=== PATIENT | male | born 1965 ===

== ENCOUNTER 2024-09-09 05:25 | Day surgery (SDC) | payer OTHER ==
[2024-09-09] MEDS ORDERED: MOXIFLOXACIN H400 MG PO (10:43)
[2024-09-09] MEDS ORDERED: fentaNYL CITRATE 50 MCG/ML AMPUL IV ONE (10:45)
[2024-09-09] MEDS ORDERED: MIDAZOLAM HCL 2 MG/2 ML VIAL IV ONE (10:45)
== END 2024-09-09 12:00 | disposition home or self-care (01) ==
LOC: AMB-ENDOS 05:25
PROVIDERS: ATTEND Surgery
DX: D12.3 Benign neoplasm of transverse colon (principal); D12.8 Benign neoplasm of rectum; K63.5 Polyp of colon; K57.30 Diverticulosis of large intestine without perforation or abscess without bleeding

== ENCOUNTER 2024-11-06 10:40 | Inpatient (IN) | payer OTHER ==
[~2024-11-06] VITALS: Ht 152.4 cm; Wt 68.0 kg
[~2024-11-06 10:40] MED LIST: MOXIFLOXACIN H400 MG PO
[2024-11-06] MEDS ORDERED: TOPROL XL100 M1 PO (14:36)
[2024-11-06] MEDS ORDERED: LEVO-T25 MCG PO (14:36)
[2024-11-06] MEDS ORDERED: IRBESARTAN-HCT1 EACH PO (14:36)
[2024-11-06] MEDS ORDERED: ROSUVASTATIN CA20 MG PO (14:37)
[2024-11-06] MEDS ORDERED: LIPOFEN150 MG PO (14:37)
[2024-11-14] MEDS ORDERED: METRONIDAZOLE/SODIUM CHLORIDE 500 MG/100 ML PIGGYBACK IV ONE ×3 (13:57→17:48)
[2024-11-14] MEDS ORDERED: LIDOCAINE HCL 1%/EPINEPHRINE 20ML VIAL IJ ONE (13:57)
[2024-11-14] MEDS ORDERED: CEFTRIAXONE SODIUM 2,000 MG VIAL ONE (13:57)
[2024-11-14] MEDS ORDERED: BUPIVACAINE HCL/Mpf 0.5% 10ML VIAL ONE (13:57)
[2024-11-14] MEDS ORDERED: MORPHINE SULFATE 4 MG/ML CARTRIDGE IV PRN (14:45)
[2024-11-14] MEDS ORDERED: 0.9 % SODIUM CHLORIDE 1,000 ML IV SCH (14:45)
[2024-11-14] MEDS ORDERED: OxyCODONE HCL 5 MG TABLET (ROXICODONE) PO PRN (14:45)
[2024-11-14] MEDS ORDERED: ONDANSETRON HCL 2 MG/ML VIAL IV PRN (14:45)
[2024-11-14] MEDS ORDERED: DEXTROSE 50 % IN WATER 0.5 G/ML DISP.SYRIN IV PRN (14:45)
[2024-11-14] MEDS ORDERED: HYOSCYAMINE SULFATE 0.125 MG TAB.SUBL SL SCH (17:00)
[2024-11-14] MEDS ORDERED: GABAPENTIN 300 MG CAPSULE PO SCH (17:00)
[2024-11-14] MEDS ORDERED: METRONIDAZOLE/SODIUM CHLORIDE 500 MG/100 ML PIGGYBACK IV SCH (17:00)
[2024-11-14] MEDS ORDERED: POLYETHYLENE GLYCOL 3350 17 GM BLIST.PACK PO SCH (17:00)
[2024-11-14] MEDS ORDERED: MORPHINE SULFATE 4 MG/ML VIAL IV ONE ×3 (17:25→19:55)
[2024-11-14 18:46] LABS: HEMATOCRIT 36.6 % (39.0-48.0); HEMOGLOBIN 11.8 g/dL (13-16.00); MEAN CELL VOLUME 85.4 fL (80.0-100.00); MEAN CORPUSCULAR HEMOGLOBIN 27.6 pg (27.00-32.0); MEAN CORPUSCULAR HGB CONC 32.3 g/dl (32.0-36.0); PLATELET COUNT 457 K/uL (150-450); RED BLOOD COUNT 4.29 M/uL (4.00-6.00); RED CELL DISTRIBUTION WIDTH 14.9 % (11.5-14.5)
[2024-11-14] MEDS ORDERED: HYDROCORTISONE SODIUM SUCC/PF 100 MG VIAL IV SCH (19:01)
[2024-11-14 19:06] LABS: ALBUMIN 3.4 gm/dL (3.4-5.0); CALCIUM 8.4 mg/dL (8.5-10.1); CREATININE SERUM 1.37 mg/dL (0.70-1.30); GFR 53.37; MAGNESIUM 1.5 mg/dL (1.8-2.4); PHOSPHOROUS 3.3 mg/dL (2.5-4.9); POTASSIUM 3.97 mEq/L (3.5-5.1)
[2024-11-14] MEDS ORDERED: hydrALAZINE HCL 20 MG VIAL IV PRN (19:15)
[2024-11-14] MEDS ORDERED: ACETAMINOPHEN 500 MG GEL..CAP PO SCH (20:00)
[2024-11-14] MEDS ORDERED: MEPERIDINE HCL 25 MG/ML AMPUL IV ONE (20:55)
[2024-11-14] MEDS ORDERED: FAMOTIDINE/PF 20 MG/2 ML VIAL IV PUSH SCH (21:00)
[2024-11-14] MEDS ORDERED: CELECOXIB 200 MG CAPSULE PO SCH (21:00)
[2024-11-15] MEDS ORDERED: ACETAMINOPHEN 500 MG GEL..CAP PO ONE (00:39)
[2024-11-15] MEDS ORDERED: METRONIDAZOLE/SODIUM CHLORIDE 500 MG/100 ML PIGGYBACK IV ONE (00:39)
[2024-11-15] MEDS ORDERED: GABAPENTIN 300 MG CAPSULE PO ONE (00:39)
[2024-11-15] MEDS ORDERED: METHYLPREDNISOLONE SOD SUCC 125 MG VIAL ONE (00:45)
[2024-11-15 03:58] VITALS: BP 137/76; O2SAT 95
[2024-11-15] MEDS ORDERED: LEVOTHYROXINE SODIUM 25 MCG TABLET PO SCH (06:00)
[2024-11-15 07:16] LABS: HEMATOCRIT 38.6 % (39.0-48.0); HEMOGLOBIN 12.5 g/dL (13-16.00); MEAN CELL VOLUME 84.3 fL (80.0-100.00); MEAN CORPUSCULAR HEMOGLOBIN 27.2 pg (27.00-32.0); MEAN CORPUSCULAR HGB CONC 32.3 g/dl (32.0-36.0); PLATELET COUNT 419 K/uL (150-450); RED BLOOD COUNT 4.58 M/uL (4.00-6.00); RED CELL DISTRIBUTION WIDTH 14.8 % (11.5-14.5)
[2024-11-15 08:02] LABS: ALBUMIN 3.5 gm/dL (3.4-5.0); CREATININE SERUM 1.23 mg/dL (0.70-1.30); GFR 60.44; MAGNESIUM 1.8 mg/dL (1.8-2.4); PHOSPHOROUS 2.8 mg/dL (2.5-4.9); POTASSIUM 4.25 mEq/L (3.5-5.1)
[2024-11-15] MEDS ORDERED: METOPROLOL SUCCINATE 100 MG TAB.SR.24H PO SCH (09:00)
[2024-11-15] MEDS ORDERED: HYDROCHLOROTHIAZIDE 12.5 MG CAPSULE PO SCH (09:00)
[2024-11-15] MEDS ORDERED: IRBESARTAN 150 MG TABLET PO SCH (09:00)
[2024-11-15] MEDS ORDERED: HYDROCORTISONE SODIUM SUCC/PF 50 MG/ML ML IV SCH ×2 (12:00→18:00)
[2024-11-15 16:00] VITALS: BP 115/71; O2SAT 97
[2024-11-15] MEDS ORDERED: ROSUVASTATIN 20 MG PO SCH (17:00)
[2024-11-15] MEDS ORDERED: ENOXAPARIN SODIUM 40 MG/0.4 ML SYRINGE SUBCUTANEO SCH (17:00)
[2024-11-16 01:33] VITALS: BP 114/72; O2SAT 95
[2024-11-16 08:00] VITALS: BP 120/65; O2SAT 96
[2024-11-16 08:41] LABS: HEMATOCRIT 33.5 % (39.0-48.0); HEMOGLOBIN 11.2 g/dL (13-16.00); MEAN CELL VOLUME 82.9 fL (80.0-100.00); MEAN CORPUSCULAR HEMOGLOBIN 27.6 pg (27.00-32.0); MEAN CORPUSCULAR HGB CONC 33.3 g/dl (32.0-36.0); PLATELET COUNT 365 K/uL (150-450); RED BLOOD COUNT 4.05 M/uL (4.00-6.00); RED CELL DISTRIBUTION WIDTH 14.8 % (11.5-14.5)
[2024-11-16] MEDS ORDERED: ENOXAPARIN SODIUM 40 MG/0.4 ML SYRINGE SUBCUTANEO SCH (09:00)
[2024-11-16 09:26] LABS: CREATININE SERUM 1.52 mg/dL (0.70-1.30); GFR 47.34; MAGNESIUM 1.9 mg/dL (1.8-2.4); PHOSPHOROUS 2.7 mg/dL (2.5-4.9); POTASSIUM 4.17 mEq/L (3.5-5.1)
[2024-11-16] MEDS ORDERED: SODIUM CHLORIDE 0.45 % 1,000 ML IV STA (13:59)
[2024-11-16 16:00] VITALS: BP 108/72; O2SAT 96
[2024-11-16] MEDS ORDERED: HYDROCORTISONE SODIUM SUCC/PF 50 MG/ML ML IV SCH (21:00)
[2024-11-17 02:00] VITALS: BP 96/63; O2SAT 89
[2024-11-17 02:49] VITALS: BP 98/50; O2SAT 97
[2024-11-17 03:42] LABS: ALBUMIN 2.6 gm/dL (3.4-5.0); ALKALINE PHOSPHATASE 41 U/L (50-136); ALT/SGPT 20 U/L (12-78); ANION GAP 13 (10.0-20.0); AST/SGOT 9 U/L (15-37); BILIRUBIN TOTAL 0.44 mg/dL (0.3-1.2); BLOOD UREA NITROGEN 18 mg/dL (7-18); BUN CREA RATIO 13 (7.0-25.0); CALCIUM 8.8 mg/dL (8.5-10.1); CARBON DIOXIDE 24 mEq/L (21-32); CHLORIDE 111 mmol/L (98-107); CREATININE SERUM 1.44 mg/dL (0.70-1.30); GFR 50.39; GLOBULINA 2.7 G/DL (2.4-3.5); GLUCOSE FASTING 105 mg/dL (65-100); OSMOLALITY SERUM 289 MOSM/KG (275-295); SODIUM 144 mmol/L (136-145); TOTAL PROTEIN 5.3 gm/dL (6.4-8.2)
[2024-11-17 04:08] LABS: CKMB < 1.0 NG/ML (0.5-3.6)
[2024-11-17] MEDS ORDERED: HYDROCORTISONE SODIUM SUCC/PF 50 MG/ML ML IV SCH (06:00)
[2024-11-17 08:00] VITALS: BP 90/67; O2SAT 95
[2024-11-17 16:00] VITALS: BP 109/75; O2SAT 95
[2024-11-17 21:00] VITALS: O2SAT 90
[2024-11-18 01:24] VITALS: BP 117/77; O2SAT 94
[2024-11-18 02:32] VITALS: O2SAT 100
[2024-11-18 08:00] VITALS: BP 116/77; O2SAT 93
[2024-11-18] MEDS ORDERED: HYDROCORTISONE SODIUM SUCC/PF 50 MG/ML ML IV SCH ×2 (09:00)
[2024-11-18 09:28] VITALS: O2SAT 96
[2024-11-18 16:00] VITALS: BP 127/61; O2SAT 98
[2024-11-18 17:49] VITALS: O2SAT 95
[2024-11-19] VITALS (8 sets, daily range): BP systolic 96–132; BP diastolic 52–67; O2SAT 90–98
[2024-11-19 07:59] LABS: HEMATOCRIT 34.5 % (39.0-48.0); HEMOGLOBIN 11.3 g/dL (13-16.00); MEAN CELL VOLUME 84.1 fL (80.0-100.00); MEAN CORPUSCULAR HEMOGLOBIN 27.6 pg (27.00-32.0); MEAN CORPUSCULAR HGB CONC 32.8 g/dl (32.0-36.0); PLATELET COUNT 468 K/uL (150-450); RED CELL DISTRIBUTION WIDTH 15.2 % (11.5-14.5)
[2024-11-19 08:21] LABS: CALCIUM 8.3 mg/dL (8.5-10.1); CREATININE SERUM 1.61 mg/dL (0.70-1.30); GFR 44.3; MAGNESIUM 2.2 mg/dL (1.8-2.4); PHOSPHOROUS 3.3 mg/dL (2.5-4.9); POTASSIUM 4.4 mEq/L (3.5-5.1); T4 TOTAL 7.26 UG/DL (4.5-12.1)
[2024-11-19] MEDS ORDERED: PREDNISONE 10 MG TABLET PO SCH (09:00)
[2024-11-19] MEDS ORDERED: DIATRIZOATE MEGLUMINE, SODIUM 30 ML BOTTLE PO NR (13:00)
[2024-11-19] MEDS ORDERED: PIPERACILLIN/TAZOBACTAM SODIUM 3.375 GM VIAL IV SCH (13:00)
[2024-11-20 00:58] VITALS: BP 106/46; O2SAT 95
[2024-11-20 06:55] LABS: HEMATOCRIT 33.5 % (39.0-48.0); HEMOGLOBIN 11.1 g/dL (13-16.00); MEAN CELL VOLUME 83.7 fL (80.0-100.00); MEAN CORPUSCULAR HEMOGLOBIN 27.7 pg (27.00-32.0); MEAN CORPUSCULAR HGB CONC 33.1 g/dl (32.0-36.0); PLATELET COUNT 581 K/uL (150-450); RED CELL DISTRIBUTION WIDTH 15.9 % (11.5-14.5)
[2024-11-20 07:09] LABS: CALCIUM 8.8 mg/dL (8.5-10.1); CREATININE SERUM 1.74 mg/dL (0.70-1.30); GFR 40.5; MAGNESIUM 2.5 mg/dL (1.8-2.4); PHOSPHOROUS 3.8 mg/dL (2.5-4.9); POTASSIUM 4.31 mEq/L (3.5-5.1)
[2024-11-20 09:23] VITALS: O2SAT 98
[2024-11-20 13:34] VITALS: O2SAT 97
[2024-11-20 16:06] VITALS: O2SAT 98
[2024-11-20] MEDS ORDERED: AA 4.25%/CAL/LYTES/DEXT 5% 1,000 ML PERIFERAL SCH (17:00)
[2024-11-20] MEDS ORDERED: MEROPENEM 500 MG/VIAL VIAL IV SCH (17:00)
[2024-11-20 19:26] VITALS: O2SAT 99
[2024-11-20 20:30] VITALS: BP 121/65; O2SAT 99
[2024-11-20] MEDS ORDERED: LINEZOLID IN DEXTROSE 5% 300 ML IV SCH (21:00)
[2024-11-20] MEDS ORDERED: MIDAZOLAM HCL 2 MG/2 ML VIAL IV PUSH ONE (21:30)
[2024-11-20] MEDS ORDERED: fentaNYL CITRATE 50 MCG/ML AMPUL IV PUSH ONE (21:45)
[2024-11-21] VITALS (8 sets, daily range): BP systolic 100–116; BP diastolic 55–77; O2SAT 90–97
[2024-11-21 07:10] LABS: HEMATOCRIT 32.2 % (39.0-48.0); HEMOGLOBIN 10.7 g/dL (13-16.00); MEAN CELL VOLUME 82.7 fL (80.0-100.00); MEAN CORPUSCULAR HEMOGLOBIN 27.5 pg (27.00-32.0); MEAN CORPUSCULAR HGB CONC 33.2 g/dl (32.0-36.0); PLATELET COUNT 588 K/uL (150-450)
[2024-11-21 07:45] LABS: CALCIUM 8.9 mg/dL (8.5-10.1); CREATININE SERUM 1.54 mg/dL (0.70-1.30); GFR 46.63; MAGNESIUM 2.5 mg/dL (1.8-2.4); PHOSPHOROUS 3.5 mg/dL (2.5-4.9); POTASSIUM 5.14 mEq/L (3.5-5.1)
[2024-11-22] VITALS (8 sets, daily range): BP systolic 119–134; BP diastolic 77–86; O2SAT 86–100
[2024-11-22] MEDS ORDERED: MORPHINE SULFATE 4 MG/ML CARTRIDGE IV STA (08:20)
[2024-11-22] MEDS ORDERED: MORPHINE SULFATE 4 MG/ML CARTRIDGE IV PRN (08:30)
[2024-11-22] MEDS ORDERED: PANTOPRAZOLE SODIUM 40 MG/VIAL VIAL IV SCH (09:00)
[2024-11-22] MEDS ORDERED: Cyanocobalamin/Mecobalamin 1 TAB.SL SL SCH (09:00)
[2024-11-22] MEDS ORDERED: SOD FERRIC GLUC COMPLX/SUCROSE 62.5 MG in 0.9 % SODIUM CHLORIDE 50 ML IV SCH (09:00)
[2024-11-23] VITALS (9 sets, daily range): BP systolic 128–133; BP diastolic 70–74; O2SAT 90–98
[2024-11-23 07:46] LABS: HEMATOCRIT 34.7 % (39.0-48.0); HEMOGLOBIN 11.3 g/dL (13-16.00); MEAN CELL VOLUME 82.6 fL (80.0-100.00); MEAN CORPUSCULAR HEMOGLOBIN 26.8 pg (27.00-32.0); MEAN CORPUSCULAR HGB CONC 32.5 g/dl (32.0-36.0); PLATELET COUNT 625 K/uL (150-450); RED CELL DISTRIBUTION WIDTH 16.2 % (11.5-14.5)
[2024-11-23 07:56] LABS: CALCIUM 8.1 mg/dL (8.5-10.1); CREATININE SERUM 0.98 mg/dL (0.70-1.30); GFR 78.56; PHOSPHOROUS 3.5 mg/dL (2.5-4.9); POTASSIUM 5.13 mEq/L (3.5-5.1)
[2024-11-23] MEDS ORDERED: DIATRIZOATE MEGLUMINE, SODIUM 30 ML BOTTLE PO NR (14:30)
[2024-11-24] VITALS (10 sets, daily range): BP systolic 142–149; BP diastolic 65–82; O2SAT 90–100
[2024-11-24] MEDS ORDERED: DIPHENHYDRAMINE HCL 50 MG/ML VIAL 1ML IV PRN (10:15)
[2024-11-24 18:19] LABS: HEMATOCRIT 35.1 % (39.0-48.0); HEMOGLOBIN 11.2 g/dL (13-16.00); MEAN CORPUSCULAR HEMOGLOBIN 26.6 pg (27.00-32.0); PLATELET COUNT 665 K/uL (150-450); RED BLOOD COUNT 4.23 M/uL (4.00-6.00); RED CELL DISTRIBUTION WIDTH 15.7 % (11.5-14.5)
[2024-11-24 18:20] LABS: INR 1.19; PARTIAL THROMBOPLASTIN TIME 36.2 SECONDS (22.0-34.0); PROTHROMBIN TIME 12.8 SECONDS (9.0-11.5)
[2024-11-24 18:26] LABS: ALBUMIN 1.6 gm/dL (3.4-5.0); BILIRUBIN TOTAL 0.44 mg/dL (0.3-1.2); CALCIUM 8.1 mg/dL (8.5-10.1); CREATININE SERUM 0.97 mg/dL (0.70-1.30); GFR 79.49; GLOBULINA 3.2 G/DL (2.4-3.5); POTASSIUM 5.03 mEq/L (3.5-5.1); TOTAL PROTEIN 4.8 gm/dL (6.4-8.2)
[2024-11-25] VITALS (7 sets, daily range): BP systolic 91–143; BP diastolic 60–74; O2SAT 95–99
[2024-11-25 07:10] LABS: INR 1.16; PARTIAL THROMBOPLASTIN TIME 34.6 SECONDS (22.0-34.0); PROTHROMBIN TIME 12.5 SECONDS (9.0-11.5)
[2024-11-25 07:14] LABS: HEMATOCRIT 34.3 % (39.0-48.0); MEAN CELL VOLUME 83.9 fL (80.0-100.00); MEAN CORPUSCULAR HEMOGLOBIN 26.9 pg (27.00-32.0); RED BLOOD COUNT 4.09 M/uL (4.00-6.00); RED CELL DISTRIBUTION WIDTH 15.4 % (11.5-14.5)
[2024-11-25 07:19] LABS: ALBUMIN 1.6 gm/dL (3.4-5.0); BILIRUBIN TOTAL 0.49 mg/dL (0.3-1.2); BILIRUBIN,CONJUGATED 0.18 mg/dL (0.0-0.2); BILIRUBIN,UNCONJUGATED 0.31 mg/dL (0.0-0.6); CALCIUM 8.1 mg/dL (8.5-10.1); CREATININE SERUM 0.94 mg/dL (0.70-1.30); GFR 82.43; TOTAL PROTEIN 4.6 gm/dL (6.4-8.2)
[2024-11-25 07:20] LABS: POTASSIUM 5.82 mEq/L (3.5-5.1)
[2024-11-25 08:07] LABS: PLATELET COUNT 691 K/uL (150-450)
[2024-11-25 08:46] LABS: UREA CLEARANCE 23.7 ML/MIN
[2024-11-25] MEDS ORDERED: HYDROCORTISONE SODIUM SUCC/PF 100 MG VIAL IV STA (09:15)
[2024-11-25] MEDS ORDERED: HYDROCORTISONE SODIUM SUCC/PF 100 MG VIAL ONE (09:17)
[2024-11-25] MEDS ORDERED: HYDROCORTISONE SODIUM SUCC/PF 50 MG/ML ML IV SCH (14:00)
[2024-11-25] MEDS ORDERED: SUGAMMADEX SODIUM 200 MG/2 ML VIAL IV ONE (14:34)
[2024-11-25] MEDS ORDERED: MORPHINE SULFATE 4 MG/ML CARTRIDGE IV PRN (15:00)
[2024-11-25] MEDS ORDERED: DEXTROSE 50 % IN WATER 0.5 G/ML DISP.SYRIN IV PRN (15:00)
[2024-11-25] MEDS ORDERED: 0.9 % SODIUM CHLORIDE 1,000 ML IV SCH (15:00)
[2024-11-25] MEDS ORDERED: ONDANSETRON HCL 2 MG/ML VIAL IV PRN (15:00)
[2024-11-25] MEDS ORDERED: PROPOFOL 10,000 MCG/ML VIAL IV ONE (17:00)
[2024-11-25] MEDS ORDERED: HYOSCYAMINE SULFATE 0.125 MG TAB.SUBL SL SCH (17:00)
[2024-11-25] MEDS ORDERED: MORPHINE SULFATE 4 MG/ML VIAL IV ONE (17:10)
[2024-11-25] MEDS ORDERED: PROPOFOL 100 ML IV SCH (17:15)
[2024-11-25 18:19] LABS: ALBUMIN 1.4 gm/dL (3.4-5.0); CALCIUM 7.9 mg/dL (8.5-10.1); CREATININE SERUM 0.98 mg/dL (0.70-1.30); GFR 78.56; PHOSPHOROUS 5.3 mg/dL (2.5-4.9); POTASSIUM 5.9 mEq/L (3.5-5.1)
[2024-11-25 18:59] LABS: HEMATOCRIT 37.3 % (39.0-48.0); HEMOGLOBIN 11.7 g/dL (13-16.00); MEAN CELL VOLUME 84.1 fL (80.0-100.00); MEAN CORPUSCULAR HEMOGLOBIN 26.3 pg (27.00-32.0); MEAN CORPUSCULAR HGB CONC 31.3 g/dl (32.0-36.0); PLATELET COUNT 848 K/uL (150-450); RED BLOOD COUNT 4.43 M/uL (4.00-6.00); RED CELL DISTRIBUTION WIDTH 15.6 % (11.5-14.5)
[2024-11-25] MEDS ORDERED: FentaNYL CITRATE/PF 1,000 MCG in 0.9 % SODIUM CHLORIDE 100 ML IV SCH (19:15)
[2024-11-25] MEDS ORDERED: ACETAMINOPHEN 500 MG GEL..CAP PO SCH (20:00)
[2024-11-25] MEDS ORDERED: FAMOTIDINE/PF 20 MG/2 ML VIAL IV PUSH SCH (21:00)
[2024-11-25 22:27] LABS: ABG PH 7.301 (7.35-7.45); ABG PO2 70.2 mmHg (80-100); ABG pCO2 30.6 mmHg (35-45); BASE EXCESS -10.2 mmol/l; BICARBONATE 14.8 mmol/l (23-25); Tco2 15.7 mmol/l; allen test SATISFACTORY; o2 100 %; puncture site RADIAL RIGHT
[2024-11-26] VITALS (13 sets, daily range): BP systolic 88–126; BP diastolic 59–83; O2SAT 10–100
[2024-11-26] MEDS ORDERED: CHLORHEXIDINE GLUCONATE 15ML BRUSH KIT MM SCH (01:00)
[2024-11-26 07:04] LABS: ALBUMIN 1.3 gm/dL (3.4-5.0); CALCIUM 7.6 mg/dL (8.5-10.1); CREATININE SERUM 1.42 mg/dL (0.70-1.30); GFR 51.21; MAGNESIUM 2.1 mg/dL (1.8-2.4); PHOSPHOROUS 5.4 mg/dL (2.5-4.9)
[2024-11-26 07:05] LABS: HEMATOCRIT 30.8 % (39.0-48.0); HEMOGLOBIN 9.7 g/dL (13-16.00); MEAN CELL VOLUME 83.9 fL (80.0-100.00); MEAN CORPUSCULAR HEMOGLOBIN 26.4 pg (27.00-32.0); MEAN CORPUSCULAR HGB CONC 31.5 g/dl (32.0-36.0); RED BLOOD COUNT 3.67 M/uL (4.00-6.00); RED CELL DISTRIBUTION WIDTH 15.7 % (11.5-14.5)
[2024-11-26 07:22] LABS: POTASSIUM 6.24 mEq/L (3.5-5.1)
[2024-11-26 07:40] LABS: PLATELET COUNT 709 K/uL (150-450)
[2024-11-26 08:16] LABS: ABG PH 7.391 (7.35-7.45); ABG PO2 216.2 mmHg (80-100); ABG pCO2 36.3 mmHg (35-45); BASE EXCESS -2.8 mmol/l; BICARBONATE 21.5 mmol/l (23-25); SaO2 99.7 %; Tco2 22.6 mmol/l
[2024-11-26] MEDS ORDERED: FUROsemide 40 MG/4 ML VIAL IV STA (08:46)
[2024-11-26] MEDS ORDERED: WATER IV NR (09:00)
[2024-11-26] MEDS ORDERED: CALCIUM GLUCONATE 100 MG/ML VIAL IV NR (09:00)
[2024-11-26] MEDS ORDERED: POLYVINYL ALCOHOL 15 ML DROPS OP SCH (09:00)
[2024-11-26] MEDS ORDERED: HUMAN IV NR (09:00)
[2024-11-26] MEDS ORDERED: DEXTROSE 5% IV NR (09:00)
[2024-11-26] MEDS ORDERED: INSULIN REGULAR IV NR (09:00)
[2024-11-26 10:02] LABS: allen test SATISFACTORY; o2 100 %; puncture site RADIAL RIGHT
[2024-11-26 14:42] LABS: CALCIUM 7.8 mg/dL (8.5-10.1); CREATININE SERUM 1.28 mg/dL (0.70-1.30); GFR 57.72; POTASSIUM 4.68 mEq/L (3.5-5.1)
[2024-11-26] MEDS ORDERED: FLUCONAZOLE IN NACL,ISO-OSM 400 MG/200 ML PIGGYBAG IV SCH (17:00)
[2024-11-26] MEDS ORDERED: ENOXAPARIN SODIUM 40 MG/0.4 ML SYRINGE SUBCUTANEO SCH (17:00)
[2024-11-26 19:03] LABS: PH,URINE 5.5 (5.0-8.0); URINE APPEARANCE Cloudy; URINE BILIRRUBIN Negative (NEGATIVE); URINE BLOOD Large; URINE COLOR Orange; URINE GLUCOSE Negative (NEGATIVE); URINE KETONE Negative (NEGATIVE); URINE LEUKOCYTE Small; URINE NITRATE Negative; URINE PROTEIN 30 (NEGATIVE); URINE UROBILINOGEN 0.2 E.U./dl
[2024-11-26 19:06] LABS: URINE BACTERIA 217.8 uL (0.0-1933); URINE EPITHELIAL CELLS 14.2 uL (0.0-38.8); URINE RBC 8359.8 uL (0.0-20.8); URINE WBC 214.8 uL (0.0-23.2)
[2024-11-26 19:33] LABS: URINE CAST 0.14 uL (0.0-1.40)
[2024-11-26] MEDS ORDERED: TPN (Para identificar pt. en TPN) IV SCH (20:00)
[2024-11-26] MEDS ORDERED: VANCOMYCIN HCL 1,000 MG VIAL ONE (20:35)
[2024-11-26] MEDS ORDERED: VANCOMYCIN HCL 1,000 MG VIAL IV SCH (21:00)
[2024-11-26] MEDS ORDERED: CEFEPIME HCL 1,000 MG VIAL ONE (22:44)
[2024-11-27] VITALS (15 sets, daily range): BP systolic 85–122; BP diastolic 45–68; O2SAT 90–99
[2024-11-27 07:45] LABS: ALBUMIN 1.3 gm/dL (3.4-5.0); BILIRUBIN TOTAL 0.28 mg/dL (0.3-1.2); CALCIUM 7.7 mg/dL (8.5-10.1); CREATININE SERUM 1.12 mg/dL (0.70-1.30); GFR 67.34; GLOBULINA 3.1 G/DL (2.4-3.5); MAGNESIUM 2.4 mg/dL (1.8-2.4); POTASSIUM 5.51 mEq/L (3.5-5.1); TOTAL PROTEIN 4.4 gm/dL (6.4-8.2)
[2024-11-27 08:05] LABS: HEMATOCRIT 27.3 % (39.0-48.0); MEAN CORPUSCULAR HGB CONC 32.2 g/dl (32.0-36.0); RED CELL DISTRIBUTION WIDTH 16.1 % (11.5-14.5)
[2024-11-27] MEDS ORDERED: INSULIN REGULAR, HUMAN 1,000 UNIT/10 ML UNITS IV ONE (08:15)
[2024-11-27] MEDS ORDERED: DEXTROSE 5 % IN WATER 250 ML IV SCH (08:15)
[2024-11-27] MEDS ORDERED: ENOXAPARIN SODIUM 40 MG/0.4 ML SYRINGE SUBCUTANEO SCH (09:00)
[2024-11-27 09:16] LABS: MEAN CORPUSCULAR HEMOGLOBIN 27.5 pg (27.00-32.0)
[2024-11-27 09:17] LABS: HEMOGLOBIN 8.8 g/dL (13-16.00); PLATELET COUNT 773 K/uL (150-450)
[2024-11-27] MEDS ORDERED: FUROsemide 40 MG/4 ML VIAL ONE (09:51)
[2024-11-27] MEDS ORDERED: FUROsemide 40 MG/4 ML VIAL IV SCH (10:00)
[2024-11-27] MEDS ORDERED: MIDAZOLAM HCL 100 MG in 0.9 % SODIUM CHLORIDE 100 ML IV SCH (10:30)
[2024-11-27] MEDS ORDERED: FUROsemide 20 MG/2 ML VIAL IV SCH (11:15)
[2024-11-27 11:50] LABS: ABG PH 7.235 (7.35-7.45); ABG pCO2 48.2 mmHg (35-45)
[2024-11-27 11:51] LABS: BASE EXCESS -7.6 mmol/l; Tco2 21.5 mmol/l; allen test SATISFACTORY; o2 100 %; puncture site RADIAL LEFT
[2024-11-27 11:52] LABS: ABG PO2 59.6 mmHg (80-100)
[2024-11-27] MEDS ORDERED: HYDROCORTISONE SODIUM SUCC/PF 50 MG/ML ML IV SCH (13:00)
[2024-11-27] MEDS ORDERED: VANCOMYCIN HCL 1,000 MG VIAL ONE (14:43)
[2024-11-27] MEDS ORDERED: FLUCONAZOLE IN NACL,ISO-OSM 200 MG/100 ML PIGGYBAG IV SCH (17:00)
[2024-11-27] MEDS ORDERED: INSULIN LISPRO 1,000 UNIT/10 ML UNITS SUBCUTANEO PRN (22:30)
[2024-11-27] MEDS ORDERED: DEXTROSE 50 % IN WATER 0.5 G/ML DISP.SYRIN IV PRN (22:30)
[2024-11-27] MEDS ORDERED: NOREPINEPHRINE BITARTRATE 8 MG in DEXTROSE 5 % IN WATER 250 ML IV SCH (22:45)
[2024-11-28] VITALS (21 sets, daily range): BP systolic 100–122; BP diastolic 51–67; O2SAT 90–99
[2024-11-28] MEDS ORDERED: FUROsemide 40 MG/4 ML VIAL IV SCH (01:00)
[2024-11-28 07:18] LABS: URINE PROT QUANT 24 HR 2156.55 MG/24HR (42-225); URINE PROT QUANT 24HR 130.7 MG/DL
[2024-11-28 08:32] LABS: ABG PO2 125.1 mmHg (80-100); ABG pCO2 59.9 mmHg (35-45); BASE EXCESS -9.7 mmol/l; Tco2 21.8 mmol/l
[2024-11-28 08:46] LABS: ABG PH 7.142 (7.35-7.45); o2 100 %
[2024-11-28 08:47] LABS: allen test SATISFACTORY; puncture site RADIAL RIGHT
[2024-11-28 11:50] LABS: ABG PO2 133.5 mmHg (80-100); BASE EXCESS -8.8 mmol/l; BICARBONATE 20.6 mmol/l (23-25); SaO2 97.7 %; Tco2 22.4 mmol/l
[2024-11-28 11:56] LABS: ABG PH 7.161 (7.35-7.45); allen test NO SATISFACTORY; o2 100 %; puncture site RADIAL RIGHT
[2024-11-28] MEDS ORDERED: HYDROCORTISONE SODIUM SUCC/PF 50 MG/ML ML IV SCH (12:00)
[2024-11-28] MEDS ORDERED: HYDROCORTISONE SODIUM SUCC/PF 1 MG/ML ML IV SCH (12:45)
[2024-11-28] MEDS ORDERED: MEROPENEM 500 MG/VIAL VIAL IV SCH (18:00)
[2024-11-28 19:19] LABS: HEMATOCRIT 33.7 % (39.0-48.0); HEMOGLOBIN 10.7 g/dL (13-16.00); MEAN CELL VOLUME 86.6 fL (80.0-100.00); MEAN CORPUSCULAR HEMOGLOBIN 27.4 pg (27.00-32.0); MEAN CORPUSCULAR HGB CONC 31.6 g/dl (32.0-36.0); PLATELET COUNT 704 K/uL (150-450); RED CELL DISTRIBUTION WIDTH 15.8 % (11.5-14.5)
[2024-11-28 19:34] LABS: CALCIUM 7.2 mg/dL (8.5-10.1); CREATININE SERUM 1.35 mg/dL (0.70-1.30); GFR 54.28; MAGNESIUM 2.7 mg/dL (1.8-2.4); PHOSPHOROUS 4.1 mg/dL (2.5-4.9); POTASSIUM 5.7 mEq/L (3.5-5.1)
[2024-11-28] MEDS ORDERED: VANCOMYCIN HCL 1,000 MG VIAL ONE (20:04)
[2024-11-28] MEDS ORDERED: INSULIN REGULAR, HUMAN 1,000 UNIT/10 ML UNITS IV ONE (21:00)
[2024-11-28] MEDS ORDERED: INSULIN LISPRO 1,000 UNIT/10 ML UNITS SUBCUTANEO ONE (21:15)
[2024-11-28] MEDS ORDERED: AMIODARONE HCL 50 MG/ML AMPUL IV ONE (21:30)
[2024-11-28 23:21] LABS: ABG PH 7.184 (7.35-7.45); ABG PO2 121.8 mmHg (80-100); BASE EXCESS -9.7 mmol/l; BICARBONATE 18.8 mmol/l (23-25); Tco2 20.3 mmol/l; allen test SATISFACTORY; o2 100 %; puncture site RADIAL RIGHT
[2024-11-28 23:23] LABS: SaO2 97.2 %
[2024-11-29] VITALS (20 sets, daily range): BP systolic 86–129; BP diastolic 54–68; O2SAT 83–99
[2024-11-29] MEDS ORDERED: HYDROCORTISONE SODIUM SUCC/PF 1 MG/ML ML IV SCH ×2 (06:00)
[2024-11-29 07:17] LABS: ALBUMIN 1.2 gm/dL (3.4-5.0); ALKALINE PHOSPHATASE 162 U/L (50-136); ANION GAP 12 (10.0-20.0); BILIRUBIN TOTAL 0.66 mg/dL (0.3-1.2); CALCIUM 6.8 mg/dL (8.5-10.1); CARBON DIOXIDE 21 mEq/L (21-32); CHLORIDE 110 mmol/L (98-107); CREATININE SERUM 1.87 mg/dL (0.70-1.30); GFR 37.27; SODIUM 137 mmol/L (136-145)
[2024-11-29 07:24] LABS: C-REACTIVE PROTEIN 21.1 MG/DL (0.00-0.29)
[2024-11-29 07:29] LABS: HEMATOCRIT 31.1 % (39.0-48.0); MEAN CELL VOLUME 87.5 fL (80.0-100.00); MEAN CORPUSCULAR HGB CONC 35.5 g/dl (32.0-36.0); RED BLOOD COUNT 3.55 M/uL (4.00-6.00); RED CELL DISTRIBUTION WIDTH 16.3 % (11.5-14.5)
[2024-11-29 07:29] LABS: GLUCOSE FASTING 286 mg/dL (65-100); POTASSIUM 6.49 mEq/L (3.5-5.1)
[2024-11-29 07:37] LABS: AST/SGOT 64 U/L (15-37); BUN CREA RATIO 67 (7.0-25.0); GLOBULINA 3.2 G/DL (2.4-3.5); OSMOLALITY SERUM 324 MOSM/KG (275-295); TOTAL PROTEIN 4.4 gm/dL (6.4-8.2)
[2024-11-29 07:38] LABS: ALT/SGPT < 21 U/L (12-78)
[2024-11-29 07:39] LABS: BLOOD UREA NITROGEN 125 mg/dL (7-18)
[2024-11-29 08:35] LABS: MEAN CORPUSCULAR HEMOGLOBIN 30.9 pg (27.00-32.0)
[2024-11-29 08:36] LABS: PLATELET COUNT 1110 K/uL (150-450)
[2024-11-29 09:09] LABS: BASE EXCESS -12.2 mmol/l; BICARBONATE 19.6 mmol/l (23-25); SaO2 84.4 %; Tco2 21.8 mmol/l
[2024-11-29 10:05] LABS: ABG pCO2 72.3 mmHg (35-45); o2 100 %
[2024-11-29 10:06] LABS: allen test SATISFACTORY; puncture site RADIAL RIGHT
[2024-11-29] MEDS ORDERED: INSULIN REGULAR, HUMAN 1,000 UNIT/10 ML UNITS IV NR (10:30)
[2024-11-29] MEDS ORDERED: SODIUM BICARBONATE 50MEQ/50ML VIAL IV NR (10:30)
[2024-11-29] MEDS ORDERED: HEPARIN SODIUM,PORCINE 5,000 UNITS/ML VIAL ONE (14:21)
[2024-11-29] MEDS ORDERED: VANCOMYCIN HCL 1,000 MG VIAL ONE (15:01)
[2024-11-29] MEDS ORDERED: SULFAMETHOXAZOLE/TRIMETHOPRIM 16 MG/ML 10ML VIAL IV SCH (17:00)
[2024-11-29 20:05] LABS: ABG PH 7.148 (7.35-7.45); ABG PO2 182.7 mmHg (80-100); ABG pCO2 59.7 mmHg (35-45); BASE EXCESS -9.4 mmol/l; BICARBONATE 20.2 mmol/l (23-25)
[2024-11-29 20:06] LABS: allen test SATISFACTORY; o2 100 %; puncture site RADIAL RIGHT
[2024-11-30] VITALS (24 sets, daily range): BP systolic 90–149; BP diastolic 54–82; O2SAT 90–100
[2024-11-30] MEDS ORDERED: SODIUM CL 0.9% 100 ML IV.SOLN IV ONE (00:26)
[2024-11-30 07:53] LABS: ALBUMIN 1.2 gm/dL (3.4-5.0); BILIRUBIN TOTAL 0.68 mg/dL (0.3-1.2); CREATININE SERUM 2.38 mg/dL (0.70-1.30); GFR 28.21; MAGNESIUM 2.6 mg/dL (1.8-2.4); POTASSIUM 5.09 mEq/L (3.5-5.1)
[2024-11-30 08:06] LABS: HEMATOCRIT 32.7 % (39.0-48.0); HEMOGLOBIN 11.1 g/dL (13-16.00); MEAN CELL VOLUME 86.8 fL (80.0-100.00); MEAN CORPUSCULAR HEMOGLOBIN 29.6 pg (27.00-32.0); MEAN CORPUSCULAR HGB CONC 34.1 g/dl (32.0-36.0); PLATELET COUNT 564 K/uL (150-450); RED BLOOD COUNT 3.77 M/uL (4.00-6.00); RED CELL DISTRIBUTION WIDTH 16.4 % (11.5-14.5)
[2024-11-30 08:10] LABS: CALCIUM 6.4 mg/dL (8.5-10.1); GLOBULINA 3.4 G/DL (2.4-3.5); TOTAL PROTEIN 4.6 gm/dL (6.4-8.2)
[2024-11-30] MEDS ORDERED: SODIUM BICARBONATE 50MEQ/50ML VIAL IV ONE (08:35)
[2024-11-30] MEDS ORDERED: INSULIN NPH HUMAN ISOPHANE 1,000 UNITS/10 ML UNITS SUBCUTANEO SCH (09:00)
[2024-11-30] MEDS ORDERED: SODIUM BICARBONATE 50MEQ/50ML VIAL IV NR (09:00)
[2024-11-30] MEDS ORDERED: SODIUM BICARBONATE 50 MEQ IV SCH (09:00)
[2024-11-30] MEDS ORDERED: MEROPENEM 500 MG/VIAL VIAL IV SCH (17:30)
[2024-11-30 18:26] LABS: ABG PH 7.212 (7.35-7.45); ABG PO2 86.2 mmHg (80-100); BASE EXCESS -9.7 mmol/l; SaO2 93.3 %; Tco2 19.4 mmol/l
[2024-11-30 18:27] LABS: ABG pCO2 45.7 mmHg (35-45); allen test SATISFACTORY; o2 100 %; puncture site RADIAL LEFT
[2024-11-30] MEDS ORDERED: VANCOMYCIN HCL 1,000 MG VIAL ONE (20:04)
[2024-11-30] MEDS ORDERED: VANCOMYCIN HCL 1,000 MG VIAL IV SCH (21:00)
[2024-12-01] VITALS (24 sets, daily range): BP systolic 142–175; BP diastolic 71–86; O2SAT 99–100
[2024-12-01 08:20] LABS: ABG PH 7.304 (7.35-7.45); ABG pCO2 39.1 mmHg (35-45); BASE EXCESS -6.8 mmol/l; SaO2 99.8 %; Tco2 20.2 mmol/l
[2024-12-01 08:23] LABS: o2 100 %
[2024-12-01 08:24] LABS: allen test SATISFACTORY; puncture site RADIAL RIGHT
[2024-12-01] MEDS ORDERED: PANTOPRAZOLE SODIUM 40 MG in 0.9 % SODIUM CHLORIDE 8 ML IV PUSH SCH (09:00)
[2024-12-01] MEDS ORDERED: LEVOTHYROXINE SODIUM 100 MCG/VIAL VIAL IV SCH (09:00)
[2024-12-02] VITALS (24 sets, daily range): BP systolic 147–180; BP diastolic 68–89; O2SAT 93–100
[2024-12-02 06:54] LABS: INR 1.08; PARTIAL THROMBOPLASTIN TIME 28.8 SECONDS (22.0-34.0); PROTHROMBIN TIME 11.7 SECONDS (9.0-11.5)
[2024-12-02 07:19] LABS: ALBUMIN 1.4 gm/dL (3.4-5.0); BILIRUBIN TOTAL 0.49 mg/dL (0.3-1.2); CHOL HDL RATIO 9.2 (0-5.0); CREATININE SERUM 2.73 mg/dL (0.70-1.30); GFR 24.08; GLOBULINA 3.5 G/DL (2.4-3.5); PHOSPHOROUS 3.6 mg/dL (2.5-4.9); POTASSIUM 4.61 mEq/L (3.5-5.1); TOTAL PROTEIN 4.9 gm/dL (6.4-8.2)
[2024-12-02 07:41] LABS: HEMATOCRIT 31.8 % (39.0-48.0); HEMOGLOBIN 10.6 g/dL (13-16.00); MEAN CELL VOLUME 84.6 fL (80.0-100.00); MEAN CORPUSCULAR HEMOGLOBIN 28.2 pg (27.00-32.0); MEAN CORPUSCULAR HGB CONC 33.4 g/dl (32.0-36.0); RED BLOOD COUNT 3.76 M/uL (4.00-6.00)
[2024-12-02 08:31] LABS: ABG PH 7.222 (7.35-7.45); ABG pCO2 46.6 mmHg (35-45); BASE EXCESS -8.9 mmol/l; BICARBONATE 18.7 mmol/l (23-25); SaO2 98.8 %; Tco2 20.2 mmol/l
[2024-12-02 08:32] LABS: allen test SATISFACTORY; o2 90 %; puncture site RADIAL RIGHT
[2024-12-02 08:32] LABS: UREA CLEARANCE 8.7 ML/MIN
[2024-12-02] MEDS ORDERED: INSULIN NPH HUMAN ISOPHANE 1,000 UNITS/10 ML UNITS SUBCUTANEO SCH (09:00)
[2024-12-02 09:13] LABS: PLATELET COUNT 510 K/uL (150-450)
[2024-12-02] MEDS ORDERED: ANIDULAFUNGIN 100 MG VIAL IV NR (14:00)
[2024-12-02] MEDS ORDERED: ACETAMINOPHEN 500 MG GEL..CAP PO ONE (14:15)
[2024-12-02] MEDS ORDERED: ACETAMINOPHEN 500 MG GEL..CAP PO PRN (14:30)
[2024-12-02] MEDS ORDERED: HEPARIN SODIUM,PORCINE 5,000 UNITS/ML VIAL IV NR (18:30)
[2024-12-02] MEDS ORDERED: VANCOMYCIN HCL 1,000 MG VIAL ONE (21:05)
[2024-12-03] VITALS (21 sets, daily range): BP systolic 113–178; BP diastolic 57–99; O2SAT 29–100
[2024-12-03 07:25] LABS: CALCIUM 6.6 mg/dL (8.5-10.1); CREATININE SERUM 3.25 mg/dL (0.70-1.30); GFR 19.69; PHOSPHOROUS 4.8 mg/dL (2.5-4.9); POTASSIUM 4.77 mEq/L (3.5-5.1)
[2024-12-03 07:31] LABS: HEMATOCRIT 28.4 % (39.0-48.0); HEMOGLOBIN 9.4 g/dL (13-16.00); MEAN CELL VOLUME 85.1 fL (80.0-100.00); MEAN CORPUSCULAR HEMOGLOBIN 28.2 pg (27.00-32.0); MEAN CORPUSCULAR HGB CONC 33.1 g/dl (32.0-36.0); PLATELET COUNT 351 K/uL (150-450); RED BLOOD COUNT 3.34 M/uL (4.00-6.00); RED CELL DISTRIBUTION WIDTH 15.9 % (11.5-14.5)
[2024-12-03 07:43] LABS: C-REACTIVE PROTEIN 4.01 MG/DL (0.00-0.29)
[2024-12-03 08:23] LABS: ABG PH 7.209 (7.35-7.45)
[2024-12-03 08:24] LABS: ABG PO2 88.1 mmHg (80-100); ABG pCO2 44.9 mmHg (35-45); BASE EXCESS -10.2 mmol/l; BICARBONATE 17.5 mmol/l (23-25); SaO2 93.6 %; Tco2 18.9 mmol/l; allen test SATISFACTORY; o2 90 %; puncture site RADIAL LEFT
[2024-12-03] MEDS ORDERED: ANIDULAFUNGIN 100 MG VIAL IV SCH (12:00)
[2024-12-03] MEDS ORDERED: AA 4.25%/CAL/LYTES/DEXT 5% 1,000 ML PERIFERAL SCH (17:00)
[2024-12-03] MEDS ORDERED: MEROPENEM 500 MG/VIAL VIAL IV SCH (17:00)
[2024-12-03] MEDS ORDERED: INSULIN NPH HUMAN ISOPHANE 1,000 UNITS/10 ML UNITS SUBCUTANEO SCH (17:00)
[2024-12-03] MEDS ORDERED: HEPARIN SODIUM,PORCINE 5,000 UNITS/ML VIAL ONE ×2 (18:20→21:13)
[2024-12-04] VITALS (23 sets, daily range): BP systolic 137–169; BP diastolic 70–91; O2SAT 96–100
[2024-12-04 08:30] LABS: HEMATOCRIT 25.6 % (39.0-48.0); MEAN CELL VOLUME 81.4 fL (80.0-100.00); MEAN CORPUSCULAR HGB CONC 34.3 g/dl (32.0-36.0); PLATELET COUNT 221 K/uL (150-450); RED BLOOD COUNT 3.14 M/uL (4.00-6.00); RED CELL DISTRIBUTION WIDTH 16.2 % (11.5-14.5)
[2024-12-04 08:31] LABS: HEMOGLOBIN 8.8 g/dL (13-16.00)
[2024-12-04 08:51] LABS: ALBUMIN 1.7 gm/dL (3.4-5.0); BILIRUBIN TOTAL 0.33 mg/dL (0.3-1.2); CREATININE SERUM 2.94 mg/dL (0.70-1.30); GFR 22.11; GLOBULINA 2.9 G/DL (2.4-3.5); MAGNESIUM 2.8 mg/dL (1.8-2.4); PHOSPHOROUS 5.9 mg/dL (2.5-4.9); POTASSIUM 4.45 mEq/L (3.5-5.1); TOTAL PROTEIN 4.6 gm/dL (6.4-8.2)
[2024-12-04 08:54] LABS: ABG PH 7.292 (7.35-7.45); ABG PO2 297.5 mmHg (80-100); ABG pCO2 39.8 mmHg (35-45); BASE EXCESS -7.2 mmol/l; BICARBONATE 18.8 mmol/l (23-25); SaO2 99.8 %
[2024-12-04 08:55] LABS: allen test SATISFACTORY; o2 100 %; puncture site RADIAL RIGHT
[2024-12-04] MEDS ORDERED: HEPARIN SODIUM,PORCINE 5,000 UNITS/ML VIAL ONE (19:49)
[2024-12-04 23:53] LABS: HEMATOCRIT 34.8 % (39.0-48.0); HEMOGLOBIN 11.4 g/dL (13-16.00); MEAN CELL VOLUME 85.1 fL (80.0-100.00); MEAN CORPUSCULAR HEMOGLOBIN 27.9 pg (27.00-32.0); MEAN CORPUSCULAR HGB CONC 32.8 g/dl (32.0-36.0); PLATELET COUNT 181 K/uL (150-450); RED BLOOD COUNT 4.09 M/uL (4.00-6.00); RED CELL DISTRIBUTION WIDTH 16.5 % (11.5-14.5)
[2024-12-05] VITALS (23 sets, daily range): BP systolic 138–172; BP diastolic 70–91; O2SAT 96–98
[2024-12-05 08:25] LABS: ABG PH 7.334 (7.35-7.45); ABG PO2 137.1 mmHg (80-100); ABG pCO2 36.1 mmHg (35-45); BASE EXCESS -6.3 mmol/l; BICARBONATE 18.8 mmol/l (23-25); SaO2 98.8 %; Tco2 19.9 mmol/l; allen test SATISFACTORY; o2 60 %; puncture site RADIAL RIGHT
[2024-12-05 10:11] LABS: HEMATOCRIT 34.5 % (39.0-48.0); MEAN CORPUSCULAR HGB CONC 33.4 g/dl (32.0-36.0); RED CELL DISTRIBUTION WIDTH 16.2 % (11.5-14.5)
[2024-12-05 10:15] LABS: HEMOGLOBIN 11.5 g/dL (13-16.00); PLATELET COUNT 180 K/uL (150-450)
[2024-12-05 10:50] LABS: CALCIUM 7.8 mg/dL (8.5-10.1); CREATININE SERUM 2.56 mg/dL (0.70-1.30); GFR 25.94; POTASSIUM 4.28 mEq/L (3.5-5.1)
[2024-12-05] MEDS ORDERED: INSULIN NPH HUMAN ISOPHANE 1,000 UNITS/10 ML UNITS SUBCUTANEO SCH (17:00)
[2024-12-06 04:00] VITALS: BP 166/89; O2SAT 98
[2024-12-06 07:05] LABS: HEMATOCRIT 31.6 % (39.0-48.0); HEMOGLOBIN 10.7 g/dL (13-16.00); MEAN CELL VOLUME 83.2 fL (80.0-100.00); MEAN CORPUSCULAR HEMOGLOBIN 28.3 pg (27.00-32.0); PLATELET COUNT 172 K/uL (150-450); RED BLOOD COUNT 3.79 M/uL (4.00-6.00); RED CELL DISTRIBUTION WIDTH 15.9 % (11.5-14.5)
[2024-12-06 07:08] VITALS: BP 175/88; O2SAT 97
[2024-12-06 07:59] LABS: CALCIUM 7.6 mg/dL (8.5-10.1); CREATININE SERUM 2.78 mg/dL (0.70-1.30); GFR 23.58; MAGNESIUM 2.7 mg/dL (1.8-2.4); PHOSPHOROUS 6.8 mg/dL (2.5-4.9); POTASSIUM 5.05 mEq/L (3.5-5.1)
[2024-12-06 08:07] LABS: C-REACTIVE PROTEIN 2.47 MG/DL (0.00-0.29)
[2024-12-06] MEDS ORDERED: cloNIDine 0.1 MG/24 H PATCH.TDWK TD SCH (09:00)
[2024-12-06] MEDS ORDERED: THIAMINE HCL 100 MG/ML 2 ML VIAL IV SCH (09:00)
[2024-12-06 09:50] LABS: ABG PH 7.354 (7.35-7.45); ABG PO2 93.6 mmHg (80-100); BASE EXCESS -6.5 mmol/l; SaO2 96.6 %
[2024-12-06 09:51] LABS: allen test SATISFACTORY; o2 50 %; puncture site RADIAL LEFT
[2024-12-06 12:00] VITALS: BP 156/79; O2SAT 96
[2024-12-06] MEDS ORDERED: cloNIDine 0.2 MG/24 H PATCH.TDWK TD NR (12:00)
[2024-12-06 15:15] VITALS: BP 156/79; O2SAT 98
[2024-12-06 15:25] VITALS: BP 158/77; O2SAT 98
[2024-12-06] MEDS ORDERED: AMINO ACIDS 4.25 %/DEXTROSE 5% 1,000 ML PERIFERAL SCH (17:00)
[2024-12-06 20:00] VITALS: BP 148/88; O2SAT 99
[2024-12-06] MEDS ORDERED: HEPARIN SODIUM,PORCINE 5,000 UNITS/ML VIAL ONE (21:03)
[2024-12-06] MEDS ORDERED: LevETIRAcetam 500 MG/5 ML VIAL IV SCH (22:22)
[2024-12-07] VITALS (7 sets, daily range): BP systolic 141–167; BP diastolic 68–84; O2SAT 93–99
[2024-12-07 07:35] LABS: HEMATOCRIT 30.2 % (39.0-48.0); HEMOGLOBIN 9.9 g/dL (13-16.00); MEAN CORPUSCULAR HEMOGLOBIN 27.9 pg (27.00-32.0); MEAN CORPUSCULAR HGB CONC 32.8 g/dl (32.0-36.0); PLATELET COUNT 160 K/uL (150-450); RED BLOOD COUNT 3.55 M/uL (4.00-6.00); RED CELL DISTRIBUTION WIDTH 16.2 % (11.5-14.5)
[2024-12-07 08:04] LABS: CALCIUM 7.2 mg/dL (8.5-10.1); CREATININE SERUM 1.68 mg/dL (0.70-1.30); GFR 42.17; MAGNESIUM 2.3 mg/dL (1.8-2.4); POTASSIUM 4.83 mEq/L (3.5-5.1)
[2024-12-07 10:38] LABS: ABG PH 7.346 (7.35-7.45); ABG PO2 177.6 mmHg (80-100); ABG pCO2 42.3 mmHg (35-45); BICARBONATE 22.6 mmol/l (23-25); SaO2 99.5 %; Tco2 23.9 mmol/l; allen test SATISFACTORY; o2 50 %; puncture site RADIAL RIGHT
[2024-12-08 04:00] VITALS: BP 139/67; O2SAT 99
[2024-12-08 07:10] VITALS: BP 141/83; O2SAT 100
[2024-12-08 08:00] LABS: CALCIUM 7.8 mg/dL (8.5-10.1); CREATININE SERUM 1.64 mg/dL (0.70-1.30); GFR 43.36; POTASSIUM 4.89 mEq/L (3.5-5.1)
[2024-12-08 08:25] LABS: HEMATOCRIT 31.2 % (39.0-48.0); MEAN CELL VOLUME 85.8 fL (80.0-100.00); MEAN CORPUSCULAR HGB CONC 32.2 g/dl (32.0-36.0); PLATELET COUNT 222 K/uL (150-450); RED BLOOD COUNT 3.64 M/uL (4.00-6.00); RED CELL DISTRIBUTION WIDTH 16.2 % (11.5-14.5)
[2024-12-08 08:46] LABS: MEAN CORPUSCULAR HEMOGLOBIN 27.4 pg (27.00-32.0)
[2024-12-08 08:52] LABS: ABG PH 7.335 (7.35-7.45); ABG PO2 154.3 mmHg (80-100); ABG pCO2 41.1 mmHg (35-45); BASE EXCESS -4.1 mmol/l; BICARBONATE 21.4 mmol/l (23-25); SaO2 99.2 %; Tco2 22.7 mmol/l
[2024-12-08 12:00] VITALS: BP 139/73; O2SAT 98
[2024-12-08 15:21] VITALS: BP 139/76; O2SAT 98
[2024-12-08 15:31] LABS: allen test SATISFACTORY; o2 50 %; puncture site RADIAL RIGHT
[2024-12-08 19:58] VITALS: BP 140/69; O2SAT 99
[2024-12-08 23:40] VITALS: BP 142/81; O2SAT 100
[2024-12-09 04:00] VITALS: BP 146/76; O2SAT 99
[2024-12-09 06:59] LABS: MEAN CELL VOLUME 87.2 fL (80.0-100.00); MEAN CORPUSCULAR HGB CONC 32.1 g/dl (32.0-36.0); PLATELET COUNT 248 K/uL (150-450); RED BLOOD COUNT 3.33 M/uL (4.00-6.00); RED CELL DISTRIBUTION WIDTH 16.6 % (11.5-14.5)
[2024-12-09 07:13] VITALS: BP 146/76; O2SAT 99
[2024-12-09 07:17] LABS: HEMOGLOBIN 9.3 g/dL (13-16.00); MEAN CORPUSCULAR HEMOGLOBIN 27.9 pg (27.00-32.0)
[2024-12-09 07:31] LABS: ALBUMIN 1.8 gm/dL (3.4-5.0); BILIRUBIN TOTAL 0.55 mg/dL (0.3-1.2); CALCIUM 7.7 mg/dL (8.5-10.1); CREATININE SERUM 1.4 mg/dL (0.70-1.30); GFR 52.05; GLOBULINA 2.7 G/DL (2.4-3.5); POTASSIUM 5.22 mEq/L (3.5-5.1); TOTAL PROTEIN 4.5 gm/dL (6.4-8.2)
[2024-12-09 12:04] VITALS: BP 159/70; O2SAT 98
[2024-12-09 15:05] VITALS: BP 188/84
[2024-12-09 15:18] LABS: ABG PH 7.299 (7.35-7.45); ABG PO2 111.1 mmHg (80-100); ABG pCO2 50.2 mmHg (35-45); SaO2 97.6 %
[2024-12-09 15:19] LABS: BASE EXCESS -2.9 mmol/l; BICARBONATE 24.1 mmol/l (23-25); Tco2 25.6 mmol/l; allen test SATISFACTORY; o2 80 %; puncture site RADIAL RIGHT
[2024-12-09 20:00] VITALS: BP 103/62; O2SAT 99
[2024-12-09] MEDS ORDERED: NOREPINEPHRINE BITARTRATE 8 MG in DEXTROSE 5 % IN WATER 250 ML IV SCH (20:00)
[2024-12-09] MEDS ORDERED: HEPARIN SODIUM,PORCINE 5,000 UNITS/ML VIAL ONE (20:29)
[2024-12-09] MEDS ORDERED: HEPARIN SODIUM,PORCINE 5,000 UNITS/ML VIAL SPEPROC ONE (20:30)
[2024-12-09 23:29] VITALS: BP 106/61; O2SAT 100
[2024-12-10 04:01] VITALS: BP 128/76; O2SAT 100
[2024-12-10 07:22] VITALS: BP 129/78; O2SAT 100
[2024-12-10 07:49] LABS: HEMATOCRIT 28.2 % (39.0-48.0); MEAN CELL VOLUME 87.8 fL (80.0-100.00); MEAN CORPUSCULAR HGB CONC 31.7 g/dl (32.0-36.0); PLATELET COUNT 258 K/uL (150-450); RED BLOOD COUNT 3.21 M/uL (4.00-6.00); RED CELL DISTRIBUTION WIDTH 16.6 % (11.5-14.5)
[2024-12-10 07:53] LABS: HEMOGLOBIN 8.9 g/dL (13-16.00); MEAN CORPUSCULAR HEMOGLOBIN 27.7 pg (27.00-32.0)
[2024-12-10 08:45] LABS: CALCIUM 7.7 mg/dL (8.5-10.1); CREATININE SERUM 1.12 mg/dL (0.70-1.30); GFR 67.34; MAGNESIUM 1.9 mg/dL (1.8-2.4); PHOSPHOROUS 5.5 mg/dL (2.5-4.9); POTASSIUM 4.93 mEq/L (3.5-5.1); TSH 4.16 uIU/mL (0.358-3.74)
[2024-12-10 09:02] LABS: ABG PH 7.331 (7.35-7.45); ABG PO2 196.4 mmHg (80-100); BASE EXCESS -3.6 mmol/l; BICARBONATE 22.2 mmol/l (23-25); SaO2 99.6 %; Tco2 23.5 mmol/l
[2024-12-10 11:02] LABS: allen test SATISFACTORY; o2 70 %; puncture site RADIAL LEFT
[2024-12-10 12:00] VITALS: BP 116/64; O2SAT 99
[2024-12-10 16:00] VITALS: BP 115/76; O2SAT 100
[2024-12-10 20:00] VITALS: BP 121/66; O2SAT 98
[2024-12-10 23:23] VITALS: BP 138/70; O2SAT 98
[2024-12-11 04:00] VITALS: BP 145/76; O2SAT 99
[2024-12-11 07:00] VITALS: BP 147/78; O2SAT 100
[2024-12-11 07:12] LABS: HEMATOCRIT 25.5 % (39.0-48.0); MEAN CORPUSCULAR HGB CONC 33.1 g/dl (32.0-36.0); PLATELET COUNT 292 K/uL (150-450); RED BLOOD COUNT 2.93 M/uL (4.00-6.00); RED CELL DISTRIBUTION WIDTH 16.2 % (11.5-14.5)
[2024-12-11 07:13] LABS: HEMOGLOBIN 8.4 g/dL (13-16.00); MEAN CORPUSCULAR HEMOGLOBIN 28.6 pg (27.00-32.0)
[2024-12-11 07:36] LABS: ALBUMIN 1.8 gm/dL (3.4-5.0); BILIRUBIN TOTAL 0.91 mg/dL (0.3-1.2); CALCIUM 7.6 mg/dL (8.5-10.1); CREATININE SERUM 0.9 mg/dL (0.70-1.30); GFR 86.67; GLOBULINA 2.6 G/DL (2.4-3.5); POTASSIUM 4.54 mEq/L (3.5-5.1); TOTAL PROTEIN 4.4 gm/dL (6.4-8.2)
[2024-12-11 08:35] LABS: ABG PO2 106.7 mmHg (80-100); ABG pCO2 35.7 mmHg (35-45); BASE EXCESS -2.6 mmol/l; BICARBONATE 21.6 mmol/l (23-25); Tco2 22.7 mmol/l
[2024-12-11 09:43] LABS: allen test NO SATISFACTORY; o2 50 %; puncture site RADIAL RIGHT
[2024-12-11] MEDS ORDERED: DIATRIZOATE MEGLUMINE, SODIUM 30 ML BOTTLE PO NR (10:15)
[2024-12-11 12:00] VITALS: BP 159/87; O2SAT 99
[2024-12-11 15:33] VITALS: BP 149/77; O2SAT 99
[2024-12-11 20:00] VITALS: BP 149/89; O2SAT 98
[2024-12-11 23:05] VITALS: BP 133/81; O2SAT 99
[2024-12-11] MEDS ORDERED: HEPARIN SODIUM,PORCINE 5,000 UNITS/ML VIAL SPEPROC ONE (23:15)
[2024-12-12] VITALS (7 sets, daily range): BP systolic 111–144; BP diastolic 30–83; O2SAT 81–100
[2024-12-12 01:33] LABS: MEAN CELL VOLUME 85.9 fL (80.0-100.00); MEAN CORPUSCULAR HGB CONC 32.4 g/dl (32.0-36.0); PLATELET COUNT 216 K/uL (150-450); RED CELL DISTRIBUTION WIDTH 15.9 % (11.5-14.5)
[2024-12-12 01:34] LABS: MEAN CORPUSCULAR HEMOGLOBIN 27.9 pg (27.00-32.0)
[2024-12-12 07:45] LABS: ABG PH 7.354 (7.35-7.45); ABG PO2 95.4 mmHg (80-100); ABG pCO2 42.4 mmHg (35-45); BASE EXCESS -2.4 mmol/l; BICARBONATE 23.1 mmol/l (23-25); SaO2 96.9 %; Tco2 24.4 mmol/l
[2024-12-12 10:40] LABS: CALCIUM 7.6 mg/dL (8.5-10.1); CREATININE SERUM 0.56 mg/dL (0.70-1.30); GFR 149.85; POTASSIUM 4.08 mEq/L (3.5-5.1)
[2024-12-12 11:13] LABS: allen test SATISFACTORY; o2 50 %; puncture site RADIAL RIGHT
[2024-12-13 04:00] VITALS: BP 157/84; O2SAT 98
[2024-12-13 06:54] LABS: HEMATOCRIT 35.9 % (39.0-48.0); HEMOGLOBIN 11.8 g/dL (13-16.00); MEAN CORPUSCULAR HEMOGLOBIN 28.2 pg (27.00-32.0); MEAN CORPUSCULAR HGB CONC 32.8 g/dl (32.0-36.0); PLATELET COUNT 265 K/uL (150-450); RED BLOOD COUNT 4.17 M/uL (4.00-6.00); RED CELL DISTRIBUTION WIDTH 16.4 % (11.5-14.5)
[2024-12-13 07:00] LABS: MAGNESIUM 1.7 mg/dL (1.8-2.4); PHOSPHOROUS 3.1 mg/dL (2.5-4.9)
[2024-12-13 07:05] LABS: C-REACTIVE PROTEIN 5.49 MG/DL (0.00-0.29)
[2024-12-13 07:19] VITALS: BP 152/79; O2SAT 99
[2024-12-13] MEDS ORDERED: cloNIDine 0.2 MG/24 H PATCH.TDWK TD SCH (09:00)
[2024-12-13 09:31] LABS: ABG PH 7.342 (7.35-7.45); ABG PO2 157.6 mmHg (80-100); ABG pCO2 43.7 mmHg (35-45); BASE EXCESS -2.7 mmol/l; BICARBONATE 23.1 mmol/l (23-25); SaO2 99.2 %; Tco2 24.4 mmol/l
[2024-12-13] MEDS ORDERED: MAGNESIUM SULFATE IN WATER 50 ML IV NR (12:00)
[2024-12-13 12:09] VITALS: BP 126/76; O2SAT 99
[2024-12-13 15:32] VITALS: BP 140/80; O2SAT 100
[2024-12-13 15:37] LABS: allen test SATISFACTORY; o2 50 %; puncture site RADIAL RIGHT
[2024-12-13 19:40] LABS: ALBUMIN 1.9 gm/dL (3.4-5.0); BILIRUBIN TOTAL 1.53 mg/dL (0.3-1.2); CALCIUM 7.8 mg/dL (8.5-10.1); CREATININE SERUM 0.59 mg/dL (0.70-1.30); GFR 141.09; GLOBULINA 2.8 G/DL (2.4-3.5); POTASSIUM 4.11 mEq/L (3.5-5.1); TOTAL PROTEIN 4.7 gm/dL (6.4-8.2)
[2024-12-13 20:00] VITALS: BP 141/90; O2SAT 100
[2024-12-13 23:22] VITALS: BP 137/80; O2SAT 100
[2024-12-14 04:33] VITALS: BP 151/89; O2SAT 100
[2024-12-14] MEDS ORDERED: LEVOTHYROXINE SODIUM 25 MCG TABLET PO SCH (06:00)
[2024-12-14 07:13] VITALS: BP 151/91; O2SAT 100
[2024-12-14 12:00] VITALS: BP 132/82; O2SAT 100
[2024-12-14 16:00] VITALS: BP 133/83; O2SAT 100
[2024-12-14 20:00] VITALS: BP 150/98; O2SAT 100
[2024-12-14 22:55] VITALS: BP 138/81; O2SAT 100
[2024-12-15 04:21] VITALS: BP 157/96; O2SAT 100
[2024-12-15] MEDS ORDERED: HYDROCORTISONE SODIUM SUCC/PF 1 MG/ML ML IV SCH (06:00)
[2024-12-15 07:14] VITALS: BP 147/85; O2SAT 98
[2024-12-15 08:24] LABS: ALBUMIN 1.8 gm/dL (3.4-5.0); BILIRUBIN TOTAL 0.99 mg/dL (0.3-1.2); BILIRUBIN,CONJUGATED 0.45 mg/dL (0.0-0.2); BILIRUBIN,UNCONJUGATED 0.54 mg/dL (0.0-0.6); CALCIUM 7.6 mg/dL (8.5-10.1); CREATININE SERUM 0.51 mg/dL (0.70-1.30); GFR 166.92; MAGNESIUM 1.8 mg/dL (1.8-2.4); PHOSPHOROUS 2.3 mg/dL (2.5-4.9); POTASSIUM 4.29 mEq/L (3.5-5.1); TOTAL PROTEIN 4.2 gm/dL (6.4-8.2)
[2024-12-15 08:28] LABS: C-REACTIVE PROTEIN 2.85 MG/DL (0.00-0.29)
[2024-12-15 08:58] LABS: HEMATOCRIT 28.5 % (39.0-48.0); PLATELET COUNT 332 K/uL (150-450); RED BLOOD COUNT 3.27 M/uL (4.00-6.00); RED CELL DISTRIBUTION WIDTH 16.6 % (11.5-14.5)
[2024-12-15 09:03] LABS: MEAN CORPUSCULAR HEMOGLOBIN 27.8 pg (27.00-32.0)
[2024-12-15 09:04] LABS: HEMOGLOBIN 9.1 g/dL (13-16.00)
[2024-12-15] MEDS ORDERED: DEXTROSE 5 % IN WATER 1,000 ML IV SCH (09:30)
[2024-12-15 12:00] VITALS: BP 156/91; O2SAT 100
[2024-12-15 14:07] LABS: ABG pCO2 35.9 mmHg (35-45); BASE EXCESS -2.2 mmol/l; BICARBONATE 21.9 mmol/l (23-25)
[2024-12-15 14:08] LABS: allen test SATISFACTORY; o2 100 %; puncture site RADIAL RIGHT
[2024-12-15 14:08] LABS: ABG PO2 143.6 mmHg (80-100); BASE EXCESS -4.1 mmol/l; BICARBONATE 22.6 mmol/l (23-25); SaO2 98.8 %
[2024-12-15 14:09] LABS: allen test SATISFACTORY; o2 50 %; puncture site RADIAL RIGHT
[2024-12-15 15:00] VITALS: BP 144/84; O2SAT 100
[2024-12-15 20:00] VITALS: BP 144/85; O2SAT 100
[2024-12-15 22:59] VITALS: BP 137/84; O2SAT 100
[2024-12-16 03:58] VITALS: BP 146/82; O2SAT 100
[2024-12-16 06:31] LABS: HEMATOCRIT 28.4 % (39.0-48.0); MEAN CELL VOLUME 87.4 fL (80.0-100.00); MEAN CORPUSCULAR HEMOGLOBIN 27.7 pg (27.00-32.0); MEAN CORPUSCULAR HGB CONC 31.7 g/dl (32.0-36.0); PLATELET COUNT 348 K/uL (150-450); RED BLOOD COUNT 3.25 M/uL (4.00-6.00); RED CELL DISTRIBUTION WIDTH 16.7 % (11.5-14.5)
[2024-12-16 06:43] LABS: INR 1.52; PARTIAL THROMBOPLASTIN TIME 33.5 SECONDS (22.0-34.0)
[2024-12-16 06:44] LABS: PROTHROMBIN TIME 16.1 SECONDS (9.0-11.5)
[2024-12-16 06:56] LABS: ALBUMIN 1.8 gm/dL (3.4-5.0); BILIRUBIN TOTAL 0.86 mg/dL (0.3-1.2); BILIRUBIN,CONJUGATED 0.46 mg/dL (0.0-0.2); BILIRUBIN,UNCONJUGATED 0.4 mg/dL (0.0-0.6); CALCIUM 7.8 mg/dL (8.5-10.1); CHOL HDL RATIO 6.6 (0-5.0); CREATININE SERUM 0.46 mg/dL (0.70-1.30); GFR 188.03; GLOBULINA 2.5 G/DL (2.4-3.5); POTASSIUM 4.44 mEq/L (3.5-5.1); TOTAL PROTEIN 4.3 gm/dL (6.4-8.2)
[2024-12-16 07:27] VITALS: BP 145/85; O2SAT 100
[2024-12-16 07:53] LABS: UREA CLEARANCE 24.2 ML/MIN
[2024-12-16] MEDS ORDERED: PREDNISONE 10 MG TABLET PO SCH (11:25)
[2024-12-16 12:00] VITALS: BP 158/82; O2SAT 100
[2024-12-16 14:51] VITALS: BP 160/88; O2SAT 97
[2024-12-16] MEDS ORDERED: PREDNISONE 5 MG TABLET PO SCH (17:00)
[2024-12-16 19:05] LABS: ABG PO2 107.5 mmHg (80-100); ABG pCO2 59.4 mmHg (35-45); BASE EXCESS -6.4 mmol/l; BICARBONATE 22.6 mmol/l (23-25); SaO2 96.3 %; Tco2 24.5 mmol/l
[2024-12-16 19:32] VITALS: BP 98/76; O2SAT 100
[2024-12-16] MEDS ORDERED: FF) Voriconazole 200 MG VIAL IV SCH (21:00)
[2024-12-16] MEDS ORDERED: MIDAZOLAM HCL/PF 5 MG/ML VIAL IV STA (22:03)
[2024-12-16 22:36] LABS: HEMATOCRIT 29.7 % (39.0-48.0); HEMOGLOBIN 9.5 g/dL (13-16.00); MEAN CELL VOLUME 88.4 fL (80.0-100.00); MEAN CORPUSCULAR HEMOGLOBIN 28.3 pg (27.00-32.0); PLATELET COUNT 322 K/uL (150-450); RED BLOOD COUNT 3.36 M/uL (4.00-6.00); RED CELL DISTRIBUTION WIDTH 16.5 % (11.5-14.5)
[2024-12-16] MEDS ORDERED: FUROsemide 40 MG/4 ML VIAL IV ONE (22:45)
[2024-12-16 23:00] LABS: ABG PH 7.199 (7.35-7.45)
[2024-12-16 23:00] LABS: ALBUMIN 1.8 gm/dL (3.4-5.0); BILIRUBIN TOTAL 1.8 mg/dL (0.3-1.2); CALCIUM 6.9 mg/dL (8.5-10.1); CREATININE SERUM 0.92 mg/dL (0.70-1.30); GFR 84.5; GLOBULINA 2.5 G/DL (2.4-3.5); POTASSIUM 5.38 mEq/L (3.5-5.1); TOTAL PROTEIN 4.3 gm/dL (6.4-8.2)
[2024-12-16 23:01] LABS: allen test SATISFACTORY; o2 50 %; puncture site RADIAL RIGHT
[2024-12-16] MEDS ORDERED: NOREPINEPHRINE BITARTRATE 1 MG/ML AMPUL IV ONE (23:22)
[2024-12-16 23:25] VITALS: BP 63/46; O2SAT 98
[2024-12-16] MEDS ORDERED: NOREPINEPHRINE BITARTRATE 8 MG in DEXTROSE 5 % IN WATER 250 ML IV SCH (23:45)
[2024-12-17] VITALS (24 sets, daily range): BP systolic 77–127; BP diastolic 48–82; O2SAT 92–100
[2024-12-17] MEDS ORDERED: HYDROCORTISONE SODIUM SUCC/PF 100 MG VIAL IV SCH (06:00)
[2024-12-17] MEDS ORDERED: AMIODARONE HCL 50 MG/ML AMPUL IV ONE ×2 (06:21→07:00)
[2024-12-17] MEDS ORDERED: AMIODARONE IN DEXTROSE,ISO-OSM 360 MG/200 ML IV.SOLN IV ONE (06:22)
[2024-12-17] MEDS ORDERED: MEROPENEM 500 MG/VIAL VIAL IV SCH (08:00)
[2024-12-17] MEDS ORDERED: VANCOMYCIN HCL 1,000 MG VIAL ONE ×2 (08:20→16:06)
[2024-12-17] MEDS ORDERED: SODIUM BICARBONATE 50MEQ/50ML VIAL IV ONE (08:49)
[2024-12-17 08:53] LABS: ABG PH 7.313 (7.35-7.45); ABG PO2 83.3 mmHg (80-100); ABG pCO2 30.3 mmHg (35-45); BASE EXCESS -9.7 mmol/l; SaO2 94.6 %; allen test SATISFACTORY; o2 100 %; puncture site RADIAL RIGHT
[2024-12-17] MEDS ORDERED: AMINO ACIDS/PROTEIN HYDROLYS 30 ML BLIST.PACK NGT SCH (09:00)
[2024-12-17] MEDS ORDERED: SODIUM BICARBONATE 1 MEQ/ML DISP.SYRIN 50ML IV ONE (09:00)
[2024-12-17] MEDS ORDERED: VANCOMYCIN HCL 1,000 MG VIAL IV SCH (09:00)
[2024-12-17 10:15] LABS: HEMATOCRIT 27.2 % (39.0-48.0); MEAN CORPUSCULAR HGB CONC 31.1 g/dl (32.0-36.0); PLATELET COUNT 334 K/uL (150-450); RED BLOOD COUNT 3.09 M/uL (4.00-6.00); RED CELL DISTRIBUTION WIDTH 16.6 % (11.5-14.5)
[2024-12-17 10:19] LABS: MEAN CORPUSCULAR HEMOGLOBIN 27.1 pg (27.00-32.0)
[2024-12-17 10:20] LABS: HEMOGLOBIN 8.4 g/dL (13-16.00)
[2024-12-17 10:50] LABS: ALBUMIN 1.5 gm/dL (3.4-5.0); BILIRUBIN TOTAL 1.18 mg/dL (0.3-1.2); CALCIUM 7.2 mg/dL (8.5-10.1); CREATININE SERUM 1.23 mg/dL (0.70-1.30); GFR 60.44; GLOBULINA 2.2 G/DL (2.4-3.5); POTASSIUM 4.25 mEq/L (3.5-5.1); TOTAL PROTEIN 3.7 gm/dL (6.4-8.2)
[2024-12-17 12:57] LABS: URINE APPEARANCE Turbid; URINE BILIRRUBIN Small (NEGATIVE); URINE BLOOD Large; URINE COLOR Orange; URINE GLUCOSE Negative (NEGATIVE); URINE KETONE Negative (NEGATIVE); URINE LEUKOCYTE Moderate; URINE NITRATE Positive; URINE UROBILINOGEN 0.2 E.U./dl
[2024-12-17 13:04] LABS: URINE BACTERIA 1346.3 uL (0.0-1933); URINE CAST 6.77 uL (0.0-1.40); URINE WBC 204.2 uL (0.0-23.2)
[2024-12-17 13:37] LABS: URINE PROTEIN 300 (NEGATIVE)
[2024-12-17 13:38] LABS: URINE RBC > 10558.9 uL (0.0-20.8)
[2024-12-17 13:39] LABS: URINE CRYSTALS MODERATE /HPF
[2024-12-17] MEDS ORDERED: FF) Voriconazole 200 MG VIAL IV SCH (21:00)
[2024-12-18] VITALS (10 sets, daily range): BP systolic 51–107; BP diastolic 26–58; O2SAT 56–100
[2024-12-18] MEDS ORDERED: PHENYLEPHRINE HCL 10 MG/ML AMPUL ONE ×2 (01:09→05:50)
[2024-12-18] MEDS ORDERED: PHENYLEPHRINE HCL 80 MG in 0.9 % SODIUM CHLORIDE 1,000 ML IV SCH (02:00)
[2024-12-18 07:39] LABS: ABG PH 7.087 (7.35-7.45); ABG PO2 63.5 mmHg (80-100); ABG pCO2 53.1 mmHg (35-45); BASE EXCESS -14.4 mmol/l; BICARBONATE 15.6 mmol/l (23-25); SaO2 78.7 %; Tco2 17.3 mmol/l
[2024-12-18 07:40] LABS: allen test SATISFACTORY; o2 50 %; puncture site RADIAL RIGHT
[2024-12-18] MEDS ORDERED: VANCOMYCIN HCL 1,000 MG VIAL ONE (08:02)
[2024-12-18] MEDS ORDERED: HYDROCORTISONE SODIUM SUCC/PF 100 MG VIAL ONE (08:37)
[2024-12-18] MEDS ORDERED: HYDROCORTISONE SODIUM SUCC/PF 100 MG VIAL IV STA (08:37)
[2024-12-18] MEDS ORDERED: VASOPRESSIN 20 UNITS/ML VIAL IV SCH (09:00)
[2024-12-18] MEDS ORDERED: SODIUM CL 0.9% 250 ML IV.SOLN ONE (09:09)
[2024-12-18] MEDS ORDERED: VASOPRESSIN 40 UNITS in 0.9 % SODIUM CHLORIDE 100 ML IV SCH (09:15)
[2024-12-18] MEDS ORDERED: NOREPINEPHRINE BITARTRATE 16 MG in DEXTROSE 5 % IN WATER 500 ML IV SCH ×2 (09:30→23:45)
[2024-12-18] MEDS ORDERED: HYDROCORTISONE SODIUM SUCC/PF 1 MG/ML ML IV SCH (13:00)
[2024-12-19] MEDS ORDERED: COLLAGENASE CLOSTRIDIUM HIST. 30 GM TUBE TOP SCH (09:00)
== END 2024-12-18 10:55 | disposition expired | DRG 3 ==
LOC: SURH 11-14 09:30 → ICU 11-14 09:30 → O/R 11-14 09:30 → SURH 11-14 12:15 → SURG 11-14 19:22 → SURH 11-20 13:41 → O/R 11-25 14:54 → ICU 11-25 18:33
PROVIDERS: Anesthesiology Pain Medicine; Internal Medicine; Internal Medicine Geriatric Medicine; Internal Medicine Infectious Disease; Internal Medicine Nephrology; Psychiatry & Neurology Clinical Neurophysiology; Specialist; ADMIT Surgery; ATTEND Surgery
PROC: 0DTF4ZZ Resection of Right Large Intestine, Percutaneous Endoscopic Approach (ICD-10-PCS; 2024-11-14)
PROC: 0DTN4ZZ Resection of Sigmoid Colon, Percutaneous Endoscopic Approach (ICD-10-PCS; 2024-11-14)
PROC: 0DTG4ZZ Resection of Left Large Intestine, Percutaneous Endoscopic Approach (ICD-10-PCS; principal; 2024-11-14 16:15)
PROC: 4A12X4Z Monitoring of Cardiac Electrical Activity, External Approach (ICD-10-PCS; 2024-11-17)
PROC: BW21YZZ Computerized Tomography (CT Scan) of Abdomen and Pelvis using Other Contrast (ICD-10-PCS; 2024-11-19)
PROC: 8E0ZXY6 Isolation (ICD-10-PCS; 2024-11-20)
PROC: 3E0436Z Introduction of Nutritional Substance into Central Vein, Percutaneous Approach (ICD-10-PCS; 2024-11-20)
PROC: 0W9F30Z Drainage of Abdominal Wall with Drainage Device, Percutaneous Approach (ICD-10-PCS; 2024-11-20)
PROC: BW21YZZ Computerized Tomography (CT Scan) of Abdomen and Pelvis using Other Contrast (ICD-10-PCS; 2024-11-23)
PROC: 5A1955Z Respiratory Ventilation, Greater than 96 Consecutive Hours (ICD-10-PCS; 2024-11-25)
PROC: 0D1B0Z4 Bypass Ileum to Cutaneous, Open Approach (ICD-10-PCS; 2024-11-25)
PROC: 0D9670Z Drainage of Stomach with Drainage Device, Via Natural or Artificial Opening (ICD-10-PCS; 2024-11-25)
PROC: 02HV33Z Insertion of Infusion Device into Superior Vena Cava, Percutaneous Approach (ICD-10-PCS; 2024-11-25)
PROC: 3E1M38Z Irrigation of Peritoneal Cavity using Irrigating Substance, Percutaneous Approach (ICD-10-PCS; 2024-11-25)
PROC: 0W9J3ZZ Drainage of Pelvic Cavity, Percutaneous Approach (ICD-10-PCS; 2024-11-25)
PROC: 0BH17EZ Insertion of Endotracheal Airway into Trachea, Via Natural or Artificial Opening (ICD-10-PCS; 2024-11-25)
PROC: 30233N1 Transfusion of Nonautologous Red Blood Cells into Peripheral Vein, Percutaneous Approach (ICD-10-PCS; 2024-11-27)
PROC: 06HM33Z Insertion of Infusion Device into Right Femoral Vein, Percutaneous Approach (ICD-10-PCS; 2024-11-29)
PROC: 5A1D70Z Performance of Urinary Filtration, Intermittent, Less than 6 Hours Per Day (ICD-10-PCS; 2024-11-29)
PROC: 5A1D70Z Performance of Urinary Filtration, Intermittent, Less than 6 Hours Per Day (ICD-10-PCS; 2024-12-02)
PROC: B543ZZA Ultrasonography of Right Jugular Veins, Guidance (ICD-10-PCS; 2024-12-03)
PROC: 06PYX3Z Removal of Infusion Device from Lower Vein, External Approach (ICD-10-PCS; 2024-12-03)
PROC: 05HM33Z Insertion of Infusion Device into Right Internal Jugular Vein, Percutaneous Approach (ICD-10-PCS; 2024-12-03)
PROC: 5A1D70Z Performance of Urinary Filtration, Intermittent, Less than 6 Hours Per Day (ICD-10-PCS; 2024-12-03)
PROC: 5A1D70Z Performance of Urinary Filtration, Intermittent, Less than 6 Hours Per Day (ICD-10-PCS; 2024-12-04)
PROC: 5A1D70Z Performance of Urinary Filtration, Intermittent, Less than 6 Hours Per Day (ICD-10-PCS; 2024-12-06)
PROC: 5A1D70Z Performance of Urinary Filtration, Intermittent, Less than 6 Hours Per Day (ICD-10-PCS; 2024-12-09)
PROC: BW21ZZZ Computerized Tomography (CT Scan) of Abdomen and Pelvis (ICD-10-PCS; 2024-12-11)
PROC: B020ZZZ Computerized Tomography (CT Scan) of Brain (ICD-10-PCS; 2024-12-11)
PROC: 5A1D70Z Performance of Urinary Filtration, Intermittent, Less than 6 Hours Per Day (ICD-10-PCS; 2024-12-11)
PROC: 0B110F4 Bypass Trachea to Cutaneous with Tracheostomy Device, Open Approach (ICD-10-PCS; 2024-12-14)
PROC: 0JB70ZZ Excision of Back Subcutaneous Tissue and Fascia, Open Approach (ICD-10-PCS; 2024-12-14)
PROC: 0KBN0ZZ Excision of Right Hip Muscle, Open Approach (ICD-10-PCS; 2024-12-14)
PROC: 0KBP0ZZ Excision of Left Hip Muscle, Open Approach (ICD-10-PCS; 2024-12-14)
PROC: 3E10X8Z Irrigation of Skin and Mucous Membranes using Irrigating Substance (ICD-10-PCS; 2024-12-14)
DX: D12.0 Benign neoplasm of cecum (principal); B37.7 Candidal sepsis; B37.1 Pulmonary candidiasis; T81.12XA Postprocedural septic shock, initial encounter; K65.8 Other peritonitis; J80 Acute respiratory distress syndrome; J95.821 Acute postprocedural respiratory failure; G92.8 Other toxic encephalopathy; I96 Gangrene, not elsewhere classified; K91.89 Other postprocedural complications and disorders of digestive system; T81.44XA Sepsis following a procedure, initial encounter; L02.211 Cutaneous abscess of abdominal wall; B44.1 Other pulmonary aspergillosis; B37.49 Other urogenital candidiasis; D84.9 Immunodeficiency, unspecified; E27.3 Drug-induced adrenocortical insufficiency; N04.8 Nephrotic syndrome with other morphologic changes; N17.9 Acute kidney failure, unspecified; E87.4 Mixed disorder of acid-base balance; G40.89 Other seizures; E87.0 Hyperosmolality and hypernatremia; K57.32 Diverticulitis of large intestine without perforation or abscess without bleeding; Z99.11 Dependence on respirator [ventilator] status; D12.1 Benign neoplasm of appendix; D12.2 Benign neoplasm of ascending colon; D12.4 Benign neoplasm of descending colon; D12.5 Benign neoplasm of sigmoid colon; D12.3 Benign neoplasm of transverse colon; E87.5 Hyperkalemia; D64.89 Other specified anemias; D75.838 Other thrombocytosis; E88.09 Other disorders of plasma-protein metabolism, not elsewhere classified; D32.0 Benign neoplasm of cerebral meninges; L89.152 Pressure ulcer of sacral region, stage 2; L89.150 Pressure ulcer of sacral region, unstageable; R73.9 Hyperglycemia, unspecified; I12.9 Hypertensive chronic kidney disease with stage 1 through stage 4 chronic kidney disease, or unspecified chronic kidney disease; N18.30 Chronic kidney disease, stage 3 unspecified; E03.9 Hypothyroidism, unspecified; Y83.8 Other surgical procedures as the cause of abnormal reaction of the patient, or of later complication, without mention of misadventure at the time of the procedure; Y92.230 Patient room in hospital as the place of occurrence of the external cause; Y82.8 Other medical devices associated with adverse incidents; Z43.2 Encounter for attention to ileostomy; Z66 Do not resuscitate; Z43.0 Encounter for attention to tracheostomy; Z99.2 Dependence on renal dialysis; Z79.1 Long term (current) use of non-steroidal anti-inflammatories (NSAID); Z74.01 Bed confinement status